=== PATIENT | male | born 1970 | race Caucasian/White ===

== ENCOUNTER 2017-09-18 22:57 | Emergency (ER) | payer OTHER ==
[2017-09-18 23:03] VITALS: BP 153/98; PULSE 85; RESP 18; TEMP 98
--- NOTE | 2017-09-18 23:45 | ED ---
Wound/Laceration HPI - General Chief Complaint: Wound/Laceration Stated Complaint: thumb lac-[facility] Time Seen by Provider: 09/18/17 23:32 Source: patient, RN notes reviewed Mode of arrival: ambulatory Limitations: no limitations - History of Present Illness Initial Comments: This is a 46-year-old male who presents to the emergency department with chief complaint of left thumb laceration. Patient states that he was working at a [employer] and the press came down and accidentally lacerated the back of his thumb. Denies any other injury or trauma. States that he is up-to-date with his tetanus vaccination. States he has normal range of motion of the finger. Denies fever, chills, chest pain, shortness of breath, abdominal pain, nausea or vomiting, constipation or diarrhea, dysuria or hematuria, numbness or tingling, headache or vision changes. - Related Data Home Medications Medication Instructions Recorded Confirmed Cyanocobalamin (Vitamin B-12) 1,000 mcg PO DAILY 09/18/17 09/18/17 [Vitamin B-12] Allergies Allergy/AdvReac Type Severity Reaction Status Date / Time No Known Allergies Allergy Verified 09/18/17 23:05 Review of Systems ROS Statement: Those systems with pertinent positive or pertinent negative responses have been documented in the HPI. ROS Other: All systems not noted in ROS Statement are negative. Past Medical History Past Medical History: No Reported History History of Any Multi-Drug Resistant Organisms: None Reported Past Surgical History: No Surgical Hx Reported Past Psychological History: No Psychological Hx Reported Smoking Status: Never smoker Past Alcohol Use History: None Reported Past Drug Use History: None Reported General Exam - General Exam Comments Initial Comments: General: Awake and alert, well-developed; in no apparent distress. HEENT: Head atraumatic, normocephalic. Pupils are equal, round and reactive to light. Extraocular movements intact. Oropharynx moist without erythema or exudate. Neck: Supple. Normal ROM. Cardiovascular: Regular rate and rhythm. No murmurs, rubs or gallops. Chest symmetrical. Respiratory: Lungs clear to auscultation bilaterally. No wheezes, rales or rhonchi. Normal respiratory effort with no use of accessory muscles. Musculoskeletal: Normal range of motion of the left thumb. There is a 1.0 cm linear laceration mid dorsal left thumb. Bleeding is controlled. Sensation is intact. Radial pulses are 2+ equal and palpable bilaterally. Skin: [place], warm and dry without rashes or lesions. Neurological: Alert and oriented x3. CN II-XII grossly intact. Speech is fluent and answers are appropriate. No focal neuro deficits. Psychiatric: Normal mood and affect. No overt signs of depression or anxiety noted. Limitations: no limitations Course Vital Signs 09/18/17 23:01 Temperature 98 F Pulse Rate 85 Respiratory 18 Rate Blood Pressure 153/98 O2 Sat by Pulse 98 Oximetry Procedures - Laceration Laceration #1 Consent Obtained: verbal consent Indication: laceration Site: hand (dorsal left thumb ) Size (cm): 1 Description: linear Depth: simple, single layer Anesthetic Used: lidocaine 1% Anesthesia Technique: local infiltration Amount (mls): 2 Pre-repair: wound explored, irrigated extensively, deep structures intact Type of Sutures: nylon Size of Sutures: 5-0 Number of Sutures: 1 Technique: simple, interrupted Patient Tolerated Procedure: well, no complications Medical Decision Making - Medical Decision Making This is a 46-year-old male who presents to the emergency department with chief complaint of left thumb laceration. Patient sustained a 1.0 cm linear laceration to the dorsal aspect of his left thumb while working this evening. One suture was placed and patient tolerated well without complication. He is neurovascularly intact. Normal range of motion. X-ray was obtained and revealed no acute abnormalities. Patient will be discharged home at this time. Recommended removal of sutures in the next 10-14 days. Patient states he is up-to-date with his tetanus vaccinations. Patient is in agreement with plan and voices understanding. All questions were answered. - Radiology Data Radiology results: report reviewed Left thumb x-ray conclusion: Negative left thumb exam. No sign of a foreign body. Disposition Clinical Impression: Finger laceration Disposition: HOME SELF-CARE Condition: Good Instructions: Finger Laceration (ED) Additional Instructions: Please have sutures removed in 10-14 days. Please follow up with primary care provider within 1-2 days. Return to emergency department if symptoms should worsen or any concerns arise. Is patient prescribed a controlled substance at d/c from ED?: No Referrals: Nonstaff,Physician [Primary Care Provider] - 1-2 days Time of Disposition: 00:03
--- NOTE | 2017-09-18 23:49 | XR ---
History laceration. Pain. Comparison none. Technique 3 views. FINDINGS: 3 views of the left thumb were obtained and show no fracture nor dislocation. Joint spaces are normal . There is no sign of a foreign body. CONCLUSION: Negative left thumb exam.
== END 2017-09-19 00:11 | disposition home or self-care (01) ==
LOC: EC 22:57
DX: S61.012A Laceration without foreign body of left thumb without damage to nail, initial encounter (principal); Z79.899 Other long term (current) drug therapy; W45.8XXA Other foreign body or object entering through skin, initial encounter; Y92.89 Other specified places as the place of occurrence of the external cause; Y99.0 Civilian activity done for income or pay
CPT/HCPCS: 12001; 99283

== ENCOUNTER → 2022-08-11 | Outpatient (CLI) | payer SELFPAY ==
--- NOTE | 2022-08-11 16:24 | US ---
EXAMINATION TYPE: US scrotum with doppler. DATE OF EXAM: 08/11/2022 COMPARISON: NONE CLINICAL HISTORY: 51-year-old male N50.811, K40.90 RT GROIN PAIN, RT INGUINAL HERNIA. Pain in the rig ht testicle after lifting at work. Hx vasectomy. TECHNIQUE: Grayscale and color Doppler Duplex imaging performed of the scrotum. FINDINGS: EXAM MEASUREMENTS: TESTICLES: Right Testicle: 4.3 x 3.6 x 1.9 cm Left Testicle: 4.3 x 3.3 x 2.1 cm. See below. Echogenic focus seen peripherally. EPIDIDYMIS HEAD: Right Epididymis: 0.9 x 0.9 x 1.1 cm Left Epididymis: 1.1 x 1.9 x 1.2 cm Doppler performed to assess for testicular vascularity; bilateral color flow and waveforms are seen. Presence of hydroceles: Yes Right: 1.9 x 1.8 x 0.5 cm. Left: 2.9 x 2.0 x 1.0 cm. Presence of varicoceles: Not seen Multiple hyperechoic foci seen at left testicle periphery. Largest measures 0.09 x 0.07 x 0.09 cm. IMPRESSION: 1. No sonographic evidence for testicular torsion or epididymoorchitis. Both testicles show a normal homogeneous appearance. 2. Trace to small bilateral hydroceles, left greater than right. 3. Nonspecific punctate 1 mm calcifications along the periphery of the left testicle, nonspecific, qu estionable clinical significance.
== END | disposition home or self-care (01) ==
LOC: RADUSWWP 15:13
PROVIDERS: ATTEND Emergency Medicine
DX: N43.3 Hydrocele, unspecified (principal); K40.90 Unilateral inguinal hernia, without obstruction or gangrene, not specified as recurrent; N50.811 Right testicular pain
CPT/HCPCS: 76870; 93975

== ENCOUNTER → 2022-09-08 | Outpatient (CLI) | payer SELFPAY ==
[2022-09-08 16:54] LABS: Basophils # (A) 0.04 X 10*3/uL (0.00-0.10); Basophils % (A) 0.5 %; Eosinophils % (A) 1.4 %; HCT 46.7 % (39.6-50.0); Immature Grans, Automated 0.4 %; Lymphocytes # (A) 1.28 X 10*3/uL (0.90-5.00); Lymphocytes % (A) 17.4 %; MCH 29.2 pg (27.0-32.0); MCHC 32.1 g/dL (32.0-37.0); MCV 90.9 fL (80.0-97.0); Mean Platelet Volume 10.4 fL (9.5-12.2); Monocytes # (A) 0.56 X 10*3/uL (0.20-1.00); Monocytes % (A) 7.6 %; NRBC Per 100 WBC 0 /100 WBCS (0.0-0.0); Neutrophils # (A) 5.33 X 10*3/uL (1.80-7.70); Neutrophils % (A) 72.7 %; Platelet Count 324 X 10*3/uL (140-440); RBC 5.14 X 10*6/uL (4.40-5.60); RDW 12.2 % (11.5-14.5); WBC 7.34 X 10*3/uL (4.50-10.00)
== END | disposition home or self-care (01) ==
LOC: LABPAT 11:06
PROVIDERS: ATTEND Surgery
DX: Z01.812 Encounter for preprocedural laboratory examination (principal); K40.90 Unilateral inguinal hernia, without obstruction or gangrene, not specified as recurrent; R00.1 Bradycardia, unspecified
CPT/HCPCS: 36415; 85025; 93005

== ENCOUNTER 2022-09-16 08:44 | Day surgery (SDC) | payer OTHER ==
[2022-09-10 09:49] VITALS: BMI 20.3
[~2022-09-16 08:44] MED LIST: ACETAMINOPHEN TAB 500 MG TAB PO PRN; DEXAMETHASONE SOD PHOSPHATE 4 MG/ML 1 ML VIAL IV ONE; HEPARIN SODIUM,PORCINE/PF 5,000 UNIT/0.5 ML SYRINGE SQ PRN; HYDROmorphone 0.5 MG/0.5 ML SYRINGE IVP PRN; LACTATED RINGERS 1,000 ML IV SCH; ONDANSETRON 4 MG/2 ML VIAL IVP ONE
[2022-09-16] MEDS ORDERED: MIDAZOLAM 2 MG/2 ML VIAL IVP ONE ×2 (10:18→10:26)
[2022-09-16] MEDS ORDERED: SODIUM CHLORIDE 0.9% (PF) 10 ML VIAL ONE (11:05)
[2022-09-16] MEDS ORDERED: fentaNYL (PF) 50 MCG/ML 2 ML AMP ONE (11:05)
[2022-09-16] MEDS ORDERED: DEXAMETHASONE SOD PHOSPHATE 4 MG/ML 1 ML VIAL ONE (11:05)
[2022-09-16] MEDS ORDERED: GLYCOPYRROLATE 0.2 MG/ML 2 ML VIAL ONE (11:05)
[2022-09-16] MEDS ORDERED: ROCURONIUM 10 MG/ML (5 ML VIAL) IV ONE (11:05)
[2022-09-16] MEDS ORDERED: ROPIVACAINE 5 MG/ML 30 ML VIAL ONE (11:05)
[2022-09-16] MEDS ORDERED: LIDOCAINE 2% INJ 20 MG/ML (2 ML VIAL) ONE (11:05)
[2022-09-16] MEDS ORDERED: PROPOFOL 10 MG/ML 20 ML VIAL IV ONE (11:05)
[2022-09-16] MEDS ORDERED: NEOSTIGMINE 1 MG/ML 10 ML VIAL ONE (11:05)
[2022-09-16] MEDS ORDERED: KETOROLAC 15 MG/ML 1 ML VIAL ONE (11:05)
[2022-09-16] MEDS ORDERED: SUCCINYLCHOLINE CHLORIDE 200 MG/10 ML VIAL IV ONE (11:05)
[2022-09-16] MEDS ORDERED: BUPIVACAIN-EPI 0.25%-1:200,000 30 ML VIAL SQ ONE (11:37)
[2022-09-16] MEDS ORDERED: LACTATED RINGERS 1,000 ML IV ONE (11:53)
--- NOTE | 2022-09-16 12:03 | P.OP ---
Date of Procedure: 09/16/22 Preoperative Diagnosis: Right inguinal hernia Postoperative Diagnosis: Bilateral inguinal hernia Procedure(s) Performed: Laparoscopic robotic system repair of bilateral inguinal hernia Excision of right cord lipoma Transversus abdominis plane block Anesthesia: BRENDA Surgeon: Bruce Jacobson Estimated Blood Loss (ml): 5 Pathology: other (Right cord lipoma) Condition: stable Disposition: PACU Description of Procedure: The patient's placed on the operating table in the supine position. The patient received general anesthesia. The patient's abdomen was prepped and draped in usual sterile fashion. The skin was anesthetized 1% local Xylocaine at the incision sites. Using an 11 blade a skin incision was made at the umbilicus. The fascia was grasped with a Jelly and then the peritoneal cavity was entered with the Veress needle. Position of the Veress needle was confirmed with a positive drop test. After adequate insufflation a 5 mm trocar was placed into the peritoneal cavity. The Laparoscope was placed the peritoneal cavity. And a robotic 8 mm trocar was placed in the right lateral position and then another 8 mm robotic trochars placed in the left lateral position. The original 5 mm trocar was exchanged for a 12 mm trocar. A four-quadrant transverse is also block was then performed using 1% local Xylocaine. The patient was placed in reverse Trendelenburg and then the patient was docked to the robot. Next the peritoneum over top of the right inguinal hernia was incised and then using blunt and sharp dissection and electrocautery the hernia sac was dissected free from the floor of the inguinal canal. The cord lipoma was dissected free sent to pathology. The hernia sac was completely reduced into the peritoneal cavity. And then using the Pro registered medical transcriptionist mesh the hernia was repaired. The peritoneum was then sutured with 20V lock suture. Next the peritoneum over top of the left inguinal hernia was incised and then using blunt and sharp dissection and electrocautery the hernia sac was dissected free from the floor of the inguinal canal. The hernia sac was completely reduced into the peritoneal cavity. And then using the Pro registered medical transcriptionist mesh the hernia was repaired. The peritoneum was then sutured with 20V lock suture. The patient was then undocked the robot. The needle was withdrawn from the peritoneal cavity. The umbilical trocar site was closed with 0 Ethibond suture. The skin was closed interrupted 3-0 Monocryl suture. Dermabond dressing was applied. Patient was sent to recovery in stable condition.
[2022-09-16 12:17] VITALS: TEMP 96.8
--- NOTE | 2022-09-16 13:34 | P.ANPRN ---
Procedure Note - Anesthesia - Nerve Block Performed Bilateral Erector Spinae Single Time Out Performed: Yes Date of Procedure: 09/16/22 Procedure Start Time: 10:15 Procedure Stop Time: Location of Patient: PreOp Indication: Acute Post-Operative Pain, Requested by Surgeon Sedation Type: Sedate with meaningful contact maintained Preparation: Sterile Prep Position: Prone Needle Types: Pajunk Needle Gauge: 21 Ultrasound used to visualize needle placement: Yes Ultrasound used to observe medication spread: Yes Blood Aspirated: No Pain Paresthesia on Injection Noted: No Resistance on Injection: Normal Image Stored and Saved: Yes Events: Uneventful and Well Tolerated (Ropivacaine 0.5% 15 mL plus eczema 4 Mg Plus Normal Saline 10 ML Urine Bilaterally at L1)
[2022-09-16 13:49] VITALS: BP 133/68; PULSE 77; RESP 18
== END 2022-09-16 15:03 ==
LOC: OR 08:44
PROVIDERS: ATTEND Surgery
DX: K40.20 Bilateral inguinal hernia, without obstruction or gangrene, not specified as recurrent (principal); G89.18 Other acute postprocedural pain; Z98.890 Other specified postprocedural states
CPT/HCPCS: 64999; 76942; 86900; 86901; 88304; 86850; 49650; C1781 ×2; J2250; J0330; J1100; J2710; J0690; J2405; J3010; J2795; J1885; J2704; J1644; J2001

== ENCOUNTER 2023-04-22 19:14 | Emergency (ER) | payer OTHER ==
[2023-04-22 19:50] VITALS: BP 153/94; PULSE 62; RESP 18; TEMP 97.8
[2023-04-22] MEDS ORDERED: LIDOCAINE 1% INJ 10MG/ML (20 ML MDV) SQ ONE (20:09)
--- NOTE | 2023-04-22 20:29 | ED ---
Wound/Laceration HPI - General Chief Complaint: Wound/Laceration Stated Complaint: leg lac-ihs Time Seen by Provider: 04/22/23 20:04 Source: patient, RN notes reviewed Mode of arrival: ambulatory Limitations: no limitations - History of Present Illness Initial Comments: 52-year-old male with no significant past medical history presents the emergency department with a chief complaint right thigh laceration. Patient reports that he was at work using a box tender to open a pickle jar when it slipped. It cut him on his upper thigh. He is up-to-date on his tetanus vaccine. He does report that this bleeding is substantial amount. Denies any anticoagulant use. Denies numbness, tingling, weakness in the extremity. - Related Data Home Medications Medication Instructions Recorded Confirmed Cyanocobalamin (Vitamin B-12) 1,000 mcg PO Q48H 09/18/17 09/10/22 [Vitamin B-12] Previous Rx's Medication Instructions Recorded Acetaminophen Tab [Tylenol] 650 mg PO Q6H #30 tab 09/16/22 Docusate [Colace] 100 mg PO BID #20 capsule 09/16/22 Ibuprofen [Motrin] 600 mg PO Q6HR PRN #40 tab 09/16/22 oxyCODONE HCL [OxyIR] 5 mg PO Q6H PRN 3 Days #10 tab 09/16/22 Allergies Allergy/AdvReac Type Severity Reaction Status Date / Time No Known Allergies Allergy Verified 09/16/22 09:07 Review of Systems ROS Statement: Those systems with pertinent positive or pertinent negative responses have been documented in the HPI. ROS Other: All systems not noted in ROS Statement are negative. Past Medical History Past Medical History: Hyperlipidemia History of Any Multi-Drug Resistant Organisms: None Reported Past Surgical History: No Surgical Hx Reported Additional Past Surgical History / Comment(s): "Nose straightened out", vasectomy. Past Anesthesia/Blood Transfusion Reactions: No Reported Reaction Past Psychological History: No Psychological Hx Reported Smoking Status: Never smoker Past Alcohol Use History: None Reported Past Drug Use History: None Reported - Past Family History Mother Family Medical History: No Reported History General Exam - General Exam Comments Initial Comments: General: Alert, in no acute distress Head: atraumatic normocephalic. Eyes PERRL, EOMI intact, mucous membranes moist Respiratory: Lungs clear to auscultation bilaterally Cardiovascular: Heart rate regular rate and rhythm Abdominal: Soft without guarding or rebound Extremities: Normal inspection with full range of motion and normal capillary refill, right upper thigh with 1 cm laceration without active bleeding. Full Range of motion. Neuroogic: alert and oriented 3, CN II-XII intact, able to ambulate with steady gait Skin: warm dry and intact with normal color Limitations: no limitations Course Vital Signs 04/22/23 19:25 Temperature 97.8 F Pulse Rate 62 Respiratory 18 Rate Blood Pressure 153/94 O2 Sat by Pulse 98 Oximetry Procedures - Laceration Laceration #1 Indication: laceration Site: other (right thigh ) Description: linear Depth: simple, single layer Anesthetic Used: lidocaine 1% Anesthesia Technique: local infiltration, nerve block Amount (mls): 3 Pre-repair: wound explored, irrigated extensively Type of Sutures: other Size of Sutures: 5-0 Number of Sutures: 2 Technique: simple, interrupted Complications: pain, bleeding, nerve injury Patient Tolerated Procedure: well, no complications Medical Decision Making - Medical Decision Making Was pt. sent in by a medical professional or institution ([facility], HEALTH AND WELLNESS DIRECTOR, urgent care, hospital, or halfway...) When possible be specific @ -[No] Did you speak to anyone other than the patient for history (EMS, parent, family, police, friend...)? What history was obtained from this source @ -[No] Did you review nursing and triage notes (agree or disagree)? Why? @ -[I reviewed and agree with nursing and triage notes] Were old charts reviewed (outside hosp., previous admission, EMS record, old EKG, old radiological studies, urgent care reports/EKG's, halfway records)? Report findings @ -[No old charts were reviewed] Differential Diagnosis (chest pain, altered mental status, abdominal pain women, abdominal pain men, vaginal bleeding, weakness, fever, dyspnea, syncope, headache, dizziness, GI bleed, back pain, seizure, CVA, palpatations, mental health, musculoskeletal)? @ -[not applicable] EKG interpreted by me (3pts min.). @ -[As above] X-rays interpreted by me (1pt min.). @ -[None done] CT interpreted by me (1pt min.). @ -[None done] U/S interpreted by me (1pt. min.). @ -[None done] What testing was considered but not performed or refused? (CT, X-rays, U/S, labs)? Why? @ -[None] What meds were considered but not given or refused? Why? @ -[None] Did you discuss the management of the patient with other professionals (professionals i.e. DrJuan, PA, HEALTH AND WELLNESS DIRECTOR, lab, RT, psych nurse, director social service, quickbooks bookkeeper, teacher, corrections officer, immigration case manager)? Give summary @ -[No] Was smoking cessation discussed for >3mins.? @ -[No] Was critical care preformed (if so, how long)? @ -[No] Were there social determinants of health that impacted care today? How? (Homelessness, low income, unemployed, alcoholism, drug addiction, transportation, low edu. Level, literacy, decrease access to med. care, intermediate, rehab)? @ -[No] Was there de-escalation of care discussed even if they declined (Discuss DNR or withdrawal of care, Hospice)? DNR status @ -[No] What co-morbidities impacted this encounter? (DM, HTN, Smoking, COPD, CAD, Cancer, CVA, ARF, Chemo, Hep., AIDS, mental health diagnosis, sleep apnea, morbid obesity)? @ -[None] Was patient admitted / discharged? Hospital course, mention meds given and route, prescriptions, significant lab abnormalities, going to OR and other pertinent info. @ -Discharged. 52 year-old male who presents the emergency department with laceration. Patient is a thorough history and physical exam performed. Physical exam reveals 1 cm laceration to right upper thigh. Patient to sutures placed which she tolerated well. Precautions discussed at length. Patient discharged in stable condition with Dr. Naylor [facility] who agrees with plan of care Undiagnosed new problem with uncertain prognosis? @ -[No] Drug Therapy requiring intensive monitoring for toxicity (Heparin, Nitro, Insulin, Cardizem)? @ -[No] Were any procedures done? @ -[No] Diagnosis/symptom? @ -Thigh laceration Acute, or Chronic, or Acute on Chronic? @ -Acute Uncomplicated (without systemic symptoms) or Complicated (systemic symptoms)? @ -Uncomlplicated Side effects of treatment? @ -[No] Exacerbation, Progression, or Severe Exacerbation? @ -[No] Poses a threat to life or bodily function? How? (Chest pain, [place], CT, pneumonia, PE, COPD, DKA, ARF, appy, cholecystitis, CVA, Diverticulitis, Homicidal, Suicidal, threat to staff... and all critical care pts) @ -Low likelihood Disposition Clinical Impression: Laceration Disposition: HOME SELF-CARE Condition: Stable Instructions (If sedation given, give patient instructions): Care For Your Stitches (ED), Laceration (ED), Stitches Removal (ED) Additional Instructions: Keep the area clean and dry Please return if worsening pain or increased redness, or swelling develop Return in 7-10 days for suture removal Is patient prescribed a controlled substance at d/c from ED?: No Referrals: Warren Sánchez MD [Primary Care Provider] - 1-2 days Time of Disposition: 20:29
== END 2023-04-22 21:30 | disposition home or self-care (01) ==
LOC: EC 19:14
DX: S71.111A Laceration without foreign body, right thigh, initial encounter (principal); I10 Essential (primary) hypertension; W26.0XXA Contact with knife, initial encounter; Y99.0 Civilian activity done for income or pay
CPT/HCPCS: 99282; 12001; J2001